=== PATIENT | female | born 1960 | race Caucasian/White ===

== ENCOUNTER 2017-08-26 16:04 | Emergency (ER) | payer SELFPAY ==
[2017-08-26] MEDS ORDERED: METF-410 PO (16:37)
[2017-08-26] MEDS ORDERED: SIMV5TAB60 PO (16:37)
--- NOTE | 2017-08-26 17:26 | RADIOLOGY IMAGING REPORT ---
[place] [facility] [place] NAME[place] Chica Zarate : 1960 MR: [id number] V: [id number] EXAM DATE: ORDERING PHYSICIAN: ELAINA MOLINA TECHNOLOGIST: Location: [facility] [place] Patient: Chica Zarate : 1960 Visit/Account:[id number] Date of Sevice: 08/26/2017 Exam type: WRIST LEFT 2 VIEW History: Fell yesterday Comparison: None. Findings: Two views of the left wrist were submitted. There is no gross evidence of acute fracture-dislocation involving the left wrist. Incidentally noted are calcifications in the triangle fibrocartilage. IMPRESSION: 1. No evidence of acute fracture-dislocation involving the left wrist Report Dictated By: Ava Galvan MD at 08/26/2017 5:20 PM Report E-Signed By: Ava Galvan MD at 08/26/2017 5:21 PM WSN:[email or web address]
--- NOTE | 2017-08-26 17:27 | RADIOLOGY IMAGING REPORT ---
FACILITY: PATIENT NAME: Chica Zarate : 1960 MR: [id number] V: [id number] EXAM DATE: ORDERING PHYSICIAN: ELAINA MOLINA TECHNOLOGIST: Location: [facility] - [place] Patient: Chica Zarate : 1960 Visit/Account:[id number] Date of Sevice: 08/26/2017 Exam type: KNEE 3 VIEW LEFT History: fall Comparison: February 01, 2016. Findings: Three views of the left knee were submitted for interpretation. There is mild degenerative change in volving the medial and lateral compartments. No evidence of acute fracture or dislocation. No signi ficant joint effusion identified IMPRESSION: 1. Mild degenerative changes of the left knee as described although no evidence of acute fracture or dislocation seen Report Dictated By: Ava Galvan MD at 08/26/2017 5:21 PM Report E-Signed By: Ava Galvan MD at 08/26/2017 5:23 PM WSN:[email or web address]
[2017-08-26 17:30] VITALS: BP 133/88
--- NOTE | 2017-08-26 17:30 | RADIOLOGY IMAGING REPORT ---
FACILITY: [facility] - [place] PATIENT NAME: Chica Zarate : 1960 MR: [id number] V: [id number] EXAM DATE: ORDERING PHYSICIAN: ELAINA MOLINA TECHNOLOGIST: Location: [facility] - [place] Patient: Chica Zarate : 1960 Visit/Account:[id number] Date of Sevice: 08/26/2017 Exam type: FOOT 2 VIEW LEFT History: fall Comparison: May 21, 2017. And April 07, 2016 Findings: Again noted are postsurgical changes from open reduction internal fixation of the left first metatars al. There is an acute appearing fracture through the midshaft of the proximal phalanx of the left gr eat toe with overlapping of the fracture fragments. Moderate degenerative changes at the subtalar crescencio int and talotibial joint are present IMPRESSION: 1. Acute appearing fracture through the midshaft of the proximal phalanx of the left great toe with overlapping of the fracture fragments Postsurgical changes of the left first metatarsal Degenerative changes elsewhere as described Report Dictated By: Ava Galvan MD at 08/26/2017 5:23 PM Report E-Signed By: Ava Galvan MD at 08/26/2017 5:26 PM WSN:[email or web address]
--- NOTE | 2017-08-26 17:30 | ER Report ---
History and Physical Time Seen By MD: 16:30 Hx. of Stated Complaint: [place] [facility]. Denies hitting head neck or back. Pt twisted left great toe. Great toe is very bruised. HPI/ROS chief concern: left great toe injury HPI: 57 y/o female presenting with concern for left great toe injury following a fall at the rec center yesterday. States she did not hit her head or lose consciousness. Reports slipping and falling onto her buttocks. Unaware of bumping her foot, but states when she looked down, her left great toe was dislocated and twisted over the second toe. Reports she also "bumped" her left knee and her left wrist. Review of Systems: Respiratory: Denies shortness of breath. CV: Denies chest pain MSK: Reports difficulty holding bowl of soup with left wrist/hand. Reports minor scrapes to left knee, denies bruising or swelling. Reports significant swelling and bruising to left foot, great and second toe, with partial weight bearing possible. Neuro: Denies hitting head, loss of consciousness. Denies headache. Allergies: Coded Allergies: amoxicillin (Verified Allergy, Unknown, 08/26/17) Home Meds Reported Medications Metformin Hcl (METFORMIN HCL) 500 Mg Tablet, 1 TAB PO BID, TAB 08/26/17 Simvastatin (SIMVASTATIN) 5 Mg Tablet, 5 MG PO HS, TAB 08/26/17 Past Medical/Surgical History Current medical conditions: diabetes, hypercholesterolemia. History of left lower extremity surgery with hardware in left foot. Reviewed Nurses Notes: Yes Hx Smoking: Yes Smoking Status: Former Smoker Constitutional Vital Sign - Last 24 Hours 08/26/17 08/26/17 08/26/17 08/26/17 16:09 16:12 16:19 16:30 Temp 98.1 Pulse 105 101 Resp 20 B/P (MAP) 156/95 (115) 156/95 134/102 (113) Pulse Ox 95 92 O2 Delivery Room Air 08/26/17 08/26/17 08/26/17 08/26/17 16:34 16:49 17:00 17:04 Pulse 103 97 B/P (MAP) 127/75 (92) Pulse Ox 93 92 95 08/26/17 08/26/17 08/26/17 08/26/17 17:19 17:30 17:34 17:49 Pulse 96 97 99 B/P (MAP) 133/88 (103) Pulse Ox 91 94 94 08/26/17 17:52 Pulse Ox 91 Physical Exam Physical Exam: General: Alert, oriented x3. Respiratory: clear to auscultation bilaterally. CV: regular rate and rhythm. GI: bowel sounds normoactive all quadrants. No tenderness to palpation. MSK: Left wrist: Inflammation, no erythema, ecchymosis to ulnar aspect. Slight tenderness to palpation. Full ROM, 5/5 strength. Left knee: minor abrasions posterior to patellar area. No ecchymosis, slight tenderness to palpation. Full ROM, 5/5 strength. Left foot: Inflammation, erythema, ecchymosis to great toe, second toe, extending to medial mid-navicular area. Full ROM, 2/5 strength on dorsiflexion and plantar flexion. Full ROM and 5/5 strength right foot. Neuro: medal, radial, ulnar nerve innervation intact. Foot: decreased sensation to touch plantar aspect great toe and second toe, extending to midfoot. After obtaining thorough HPI, ROS, and physical exam, the following differentials were considered but not limited to: toe fracture, knee fracture/ sprain, wrist fracture/sprain, fracture involving left foot hardware. Medical Decision Making EKG/Imaging Imaging Exam type: FOOT 2 VIEW LEFT History: fall Comparison: May 21, 2017. And April 07, 2016 Findings: Again noted are postsurgical changes from open reduction internal fixation of the left first metatarsal. There is an acute appearing fracture through the midshaft of the proximal phalanx of the left great toe with overlapping of the fracture fragments. Moderate degenerative changes at the subtalar joint and talotibial joint are present IMPRESSION: 1. Acute appearing fracture through the midshaft of the proximal phalanx of the left great toe with overlapping of the fracture fragments Postsurgical changes of the left first metatarsal Degenerative changes elsewhere as described Report Dictated By: Ava Galvan MD at 08/26/2017 5:23 PM Report E-Signed By: Ava Galvan MD at 08/26/2017 5:26 PM Exam type: KNEE 3 VIEW LEFT History: fall Comparison: February 01, 2016. Findings: Three views of the left knee were submitted for interpretation. There is mild degenerative change involving the medial and lateral compartments. No evidence of acute fracture or dislocation. No significant joint effusion identified IMPRESSION: 1. Mild degenerative changes of the left knee as described although no evidence of acute fracture or dislocation seen Report Dictated By: Ava Galvan MD at 08/26/2017 5:21 PM Report E-Signed By: Ava Galvan MD at 08/26/2017 5:23 PM Exam type: WRIST LEFT 2 VIEW History: Fell yesterday Comparison: None. Findings: Two views of the left wrist were submitted. There is no gross evidence of acute fracture-dislocation involving the left wrist. Incidentally noted are calcifications in the triangle fibrocartilage. IMPRESSION: 1. No evidence of acute fracture-dislocation involving the left wrist Report Dictated By: Ava Galvan MD at 08/26/2017 5:20 PM Report E-Signed By: Ava Galvan MD at 08/26/2017 5:21 PM ED Course/Re-evaluation ED Course Patient was admitted to an exam room, history and physical were obtained. Differential diagnoses were considered. On examination patient had significant swelling and bruising to the left foot. Patient had some bruising to the left knee. No bruising to the left wrist, she was tender over the ulnar styloid. X- rays done of the left foot, left knee and left wrist. Left knee and wrist were negative. However the left foot shows a fracture through the proximal phalange of the great toe. I discussed findings with the patient. Patient did have her toes annabelle taped. She is to follow-up with Dr. Mondragon at [facility]. She is to limit activity by pain. She may go ahead and wear a postop shoe , which she states she has home, to help limit the flexion on her foot. We discussed pain medication, which the patient refused. We will go ahead and discharge patient home at this time. Patient verbalized understanding and agreement with plan. Decision to Disposition Date: Aug 26, 2017 Decision to Disposition Time: 17:49 Depart Departure Latest Vital Signs Vital Signs Date Time Temp Pulse Resp B/P (MAP) Pulse Ox O2 Delivery O2 Flow Rate FiO2 08/26/17 17:52 91 08/26/17 17:49 99 08/26/17 17:30 133/88 (103) 08/26/17 16:12 98.1 20 Room Air Impression: Primary Impression: Fracture of great toe Condition: Improved Disposition: HOME OR SELF-CARE Referrals: TOM MONDRAGON MD Patient Instructions: Toe Fracture (ED) Additional Instructions: Limit activity by pain. Get plenty of rest. Take Tylenol or Ibuprofen as needed for pain. Follow up with Dr. Mondragon in the next week. Call to make an appointment. Return to the ER if condition worsens. Problem Qualifiers Primary Impression: Fracture of great toe Encounter type: initial encounter Fracture type: closed Phalanx: proximal Fracture alignment: displaced Laterality: left Qualified Codes: S92.412A - Displaced fracture of proximal phalanx of left great toe, initial encounter for closed fracture ELAINA MOLINA Aug 26, 2017 17:30
== END 2017-08-26 17:57 | disposition home or self-care (01) ==
LOC: ER 16:11
DX: S92.412A Displaced fracture of proximal phalanx of left great toe, initial encounter for closed fracture (principal); S80.02XA Contusion of left knee, initial encounter; W01.0XXA Fall on same level from slipping, tripping and stumbling without subsequent striking against object, initial encounter
CPT/HCPCS: 99283

== ENCOUNTER 2017-11-27 02:10 | Emergency (ER) | payer SELFPAY ==
[~2017-11-27 02:10] MED LIST: METF-411 PO; SIMV5TAB60 PO
[2017-11-27] MEDS ORDERED: LISI5TAB25 PO (02:19)
[2017-11-27] MEDS ORDERED: ASPI-870 (02:19)
[2017-11-27] MEDS ORDERED: GABA-549 PO (02:19)
[2017-11-27] MEDS ORDERED: SIMV-49 PO (02:25)
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
[2017-11-27] MEDS ORDERED: ASPIRIN 81 MG CHEW PO ONE (02:35)
[2017-11-27] MEDS ORDERED: ALBUTEROL 2.5 MG/3 ML NEB NEB ONE (02:35)
[2017-11-27 02:55] LABS: PLATELET COUNT, AUTOMATED 236 K/uL (150-450)
[2017-11-27 03:30] VITALS: BP 139/80
--- NOTE | 2017-11-27 03:33 | RADIOLOGY IMAGING REPORT ---
FACILITY: [facility] - [place] PATIENT NAME: Chica Zarate : 1960 MR: [id number] V: [id number] EXAM DATE: ORDERING PHYSICIAN: LISA VERDIN TECHNOLOGIST: Location: [facility] Patient: Chica Zarate : 1960 Visit/Account:[id number] Date of Sevice: 11/27/2017 EXAMINATION: PA and Lateral Chest 11/27/2017 2:33 AM HISTORY: short of breath COMPARISON: None FINDINGS: Cardiomediastinal contours: Normal Lungs and pleura: Pulmonary markings are not increased allowing for the degree of penetration seconda ry to body habitus. No focal infiltrate or consolidation. Pleural spaces are clear. Bones/soft tissues: Mild degenerative spurring in the thoracic spine. IMPRESSION: No acute cardiopulmonary abnormality. Report Dictated By: David Cruz MD at 11/27/2017 3:26 AM Report E-Signed By: David Cruz MD at 11/27/2017 3:27 AM WSN:[email or web address]
--- NOTE | 2017-11-27 04:52 | EKG ---
FACILITY: [facility] [place] PATIENT NAME: CHELLY ROJAS : [id number] MR: [id number] V: [id number] EXAM DATE: ORDERING PHYSICIAN: LISA VERDIN TECHNOLOGIST: TAJ Test Reason : DYSPNEA Blood Pressure : / mmHG Vent. Rate : 090 BPM Atrial Rate : 089 BPM P-R Int : 142 ms QRS Dur : 084 ms QT Int : 384 ms P-R-T Axes : 013 028 035 degrees QTc Int : 469 ms Normal sinus rhythm Low voltage QRS No ST-T abnormalities When compared with ECG of 16-OCT-2016 11:02, Relatively unchanged Confirmed by ANA PAYNE ([id number]) on 11/27/2017 7:28:12 AM Referred By: Confirmed By:ANA PAYNE
== END 2017-11-27 03:51 | disposition home or self-care (01) ==
LOC: ER 02:41
DX: F41.0 Panic disorder [episodic paroxysmal anxiety] (principal); R06.02 Shortness of breath
CPT/HCPCS: 71046; 83880; 84484; 85025; 85379; 93005; 94640; 99284; J7613; 82040; 82247; 82310; 82374; 82435; 82565; 82947; 84075; 84132; 84155; 84295; 84450; 84460; 84520

== ENCOUNTER 2017-12-01 23:26 | Emergency (ER) | payer SELFPAY ==
[~2017-12-01 23:26] MED LIST changes: +ASPI-870; +GABA-549 PO; +LISI5TAB25 PO; +SIMV-49 PO
[2017-12-01] MEDS ORDERED: MORPHINE 4 MG/ML SDV IVP ONE (23:40)
[2017-12-01] MEDS ORDERED: ONDANSETRON 4 MG/2 ML VIAL IVP ONE (23:40)
[2017-12-01] MEDS ORDERED: KETOROLAC 30 MG/ML VIAL IVP ONE (23:40)
[2017-12-02] LABS: PLATELET COUNT, AUTOMATED 268 K/uL (150-450)
[2017-12-02] MEDS ORDERED: LEVI SUBQ (00:10)
[2017-12-02] MEDS ORDERED: NOVOLOG SUBQ (00:10)
[2017-12-02] MEDS ORDERED: LISI-362 PO (00:10)
[2017-12-02] MEDS ORDERED: GABA-549 PO (00:10)
[2017-12-02] MEDS ORDERED: NS(*) 0.9% 1000 ML BAG 1,000 ML IV ONE (00:35)
[2017-12-02] MEDS ORDERED: CIPROFLOXACIN 500 MG TAB PO ONE (01:15)
[2017-12-02] MEDS ORDERED: cefTRIAXone 1 GM VIAL IVP ONE (01:15)
[2017-12-02] MEDS ORDERED: CIPR-344 PO (01:19)
[2017-12-02] MEDS ORDERED: ONDA4TAB97 PO (01:19)
[2017-12-02] MEDS ORDERED: ACET/HYDROC 5/325MG TH ER ONLY 2 TAB/BOTTLE PO ONE (01:20)
--- NOTE | 2017-12-02 01:20 | ER Report ---
History and Physical Time Seen By MD: 23:31 Hx. of Stated Complaint: Severe left flank pain that radiates to the front. HPI/ROS CHIEF COMPLAINT: Left flank pain HISTORY OF PRESENT ILLNESS: 57-year-old female presents ambulatory to the ER with sudden onset 2-3 hours ago, left flank pain. Patient notes severe nausea, but she is unable to vomit. She notes no fever or chills. She notes no hematuria. She denies history of kidney stones. Patient was seen here in the ER a few days ago for? Anxiety. Patient appears very uncomfortable. She notes no alleviating or exacerbating factors for her pain. REVIEW OF SYSTEMS: Respiratory: No cough, no dyspnea. Cardiovascular: No chest pain, no palpitations. Gastrointestinal: As above Musculoskeletal: As above Allergies: Coded Allergies: amoxicillin (Verified Allergy, Unknown, 11/27/17) Home Meds Active Scripts Ondansetron Hcl (ZOFRAN) 4 Mg Tablet, 4 MG PO Q6H for Nausea, #10 Prov:MAHAD CISNEROS DO 12/02/17 Ciprofloxacin Hcl (CIPRO) 500 Mg Tablet, 500 MG PO BID for infection, #14 Prov:MAHAD CISNEROS DO 12/02/17 Reported Medications Insulin Aspart (NOVOLOG) 100 Unit/Ml Soln, 2 UNIT SUBQ 12/02/17 Insulin Detemir (LEVEMIR) 100 Unit/Ml Injs, 80 UNIT SUBQ QHS 12/02/17 Lisinopril (LISINOPRIL) 10 Mg Tablet, 10 MG PO QDAY, TAB 12/02/17 Gabapentin (GABAPENTIN) 300 Mg Capsule, 300 MG PO BID, CAPSULE 12/02/17 Simvastatin (SIMVASTATIN) 20 Mg Tablet, 20 MG PO HS, TAB 11/27/17 Aspirin (Children's Aspirin) 81 Mg Tab.chew 11/27/17 Metformin Hcl (METFORMIN HCL) 500 Mg Tablet, 1 TAB PO BID, TAB 08/26/17 Discontinued Reported Medications Lisinopril (LISINOPRIL) 5 Mg Tablet, 5 MG PO QDAY, TAB 11/27/17 Gabapentin (GABAPENTIN) 300 Mg Capsule, 300 MG PO TID, CAPSULE 11/27/17 Simvastatin (SIMVASTATIN) 5 Mg Tablet, 5 MG PO HS, TAB 08/26/17 Past Medical/Surgical History Hypertension, Type II diabetes, insulin required, hypercholesterolemia Reviewed Nurses Notes: Yes Old Medical Records Reviewed: Yes Hx Smoking: Yes Smoking Status: Former Smoker Hx Substance Use Disorder: No Hx Alcohol Use: No Constitutional Vital Sign - Last 24 Hours 12/01/17 12/01/17 12/02/17 12/02/17 23:32 23:33 00:03 00:08 Temp 98.3 Pulse 82 77 Resp 16 B/P (MAP) 147/100 147/108 (121) 148/90 (109) Pulse Ox 99 98 O2 Delivery Room Air 12/02/17 12/02/17 12/02/17 12/02/17 00:30 00:38 00:53 01:00 Pulse 81 B/P (MAP) 117/82 (94) 114/63 (80) Pulse Ox 96 91 89 12/02/17 12/02/17 12/02/17 12/02/17 01:05 01:30 01:35 01:53 Pulse 84 84 B/P (MAP) 106/55 (72) 107/60 (76) Pulse Ox 87 90 12/02/17 01:55 Pulse 84 Pulse Ox 90 Physical Exam Vital signs stable, afebrile, pulse ox normal General Appearance: The patient is alert, has no immediate need for airway protection and no current signs of toxicity. Moderate distress, slightly pale appearing, restless and uncomfortable appearing Eyes: Pupils equal and round no injection. Respiratory: Chest is non tender, lungs are clear to auscultation. Cardiac: regular rate and rhythm Gastrointestinal: Abdomen is soft and non tender, no masses, bowel sounds normal. Bilateral CVA tenderness Musculoskeletal: Neck: Neck is supple and non tender. Extremities have full range of motion and are non tender. Skin: No rashes or lesions. DIFFERENTIAL DIAGNOSIS: After history and physical exam differential diagnosis was considered for flank pain including but not limited to musculoskeletal causes, kidney stone, pyelonephritis, shingles, and intra-abdominal causes such as diverticulitis and appendicitis. Additionally,abdominal pain including but not limited to appendicitis, cholecystitis, gastritis and urinary tract infection. Medical Decision Making Data Points Result Diagram: 12/01/17 2330 12/01/17 2330 Laboratory Hematology Test 12/01/17 23:30 12/02/17 00:58 Red Blood Count 5.42 M/uL (4.17-5.56) Mean Corpuscular Volume 89.0 fL (80.0-96.0) Mean Corpuscular Hemoglobin 29.9 pg (26.0-33.0) Mean Corpuscular Hemoglobin Concent 33.6 g/dL (32.0-36.0) Red Cell Distribution Width 14.5 % (11.5-14.5) Mean Platelet Volume 9.3 fL (7.2-11.1) Neutrophils (%) (Auto) 62.8 % (39.4-72.5) Lymphocytes (%) (Auto) 26.8 % (17.6-49.6) Monocytes (%) (Auto) 5.7 % (4.1-12.4) Eosinophils (%) (Auto) 3.5 % (0.4-6.7) Basophils (%) (Auto) 1.2 % (0.3-1.4) Nucleated RBC Relative Count (auto) 0.0 /100WBC Neutrophils # (Auto) 8.9 K/uL (2.0-7.4) Lymphocytes # (Auto) 3.8 K/uL (1.3-3.6) Monocytes # (Auto) 0.8 K/uL (0.3-1.0) Eosinophils # (Auto) 0.5 K/uL (0.0-0.5) Basophils # (Auto) 0.2 K/uL (0.0-0.1) Nucleated RBC Absolute Count (auto) 0.00 K/uL Sodium Level 137 mmol/L (137-145) Potassium Level 3.9 mmol/L (3.5-5.0) Chloride Level 99 mmol/L (98-107) Carbon Dioxide Level 24 mmol/L (22-31) Blood Urea Nitrogen 17 mg/dl (7-18) Creatinine 0.60 mg/dl (0.52-1.04) Glomerular Filtration Rate Calc > 60.0 Random Glucose 131 mg/dl (75-110) Calcium Level 10.0 mg/dl (8.4-10.2) Total Bilirubin 0.3 mg/dl (0.2-1.3) Aspartate Amino Transf (AST/SGOT) 20 U/L (0-35) Alanine Aminotransferase (ALT/SGPT) 19 U/L (0-56) Alkaline Phosphatase 78 U/L (0-126) Total Protein 8.0 g/dl (6.3-8.2) Albumin 4.4 g/dl (3.5-5.0) Amylase Level 61 U/L (0-110) Lipase 34 U/L (23-300) Urine Color Yellow Urine Clarity Cloudy Urine pH 5.0 pH (4.8-9.5) Urine Specific [place] 1.013 Urine Protein 30 mg/dL (NEGATIVE) Urine Glucose (UA) Negative mg/dL (NEGATIVE) Urine Ketones Negative mg/dL (NEGATIVE) Urine Blood Large (NEGATIVE) Urine Nitrite Positive (NEGATIVE) Urine Bilirubin Negative (NEGATIVE) Urine Urobilinogen Negative mg/dL (0.2-1.9) Urine Leukocyte Esterase Large (NEGATIVE) Urine RBC 163 /HPF (0-2/HPF) Urine WBC 470 /HPF (0-5/HPF) Urine WBC Clumps Mod /HPF Urine Squamous Epithelial Cells Many /LPF (</=FEW) Urine Transitional Epithelial Cells Few /LPF (NONE-FEW) Urine Bacteria Moderate /HPF (NONE-FEW) Urine Mucus Few /HPF (NONE-FEW) Chemistry Test 12/01/17 23:30 12/02/17 00:58 White Blood Count 14.2 k/uL (4.5-11.0) Red Blood Count 5.42 M/uL (4.17-5.56) Hemoglobin 16.2 g/dL (12.0-16.0) Hematocrit 48.2 % (34.0-47.0) Mean Corpuscular Volume 89.0 fL (80.0-96.0) Mean Corpuscular Hemoglobin 29.9 pg (26.0-33.0) Mean Corpuscular Hemoglobin Concent 33.6 g/dL (32.0-36.0) Red Cell Distribution Width 14.5 % (11.5-14.5) Platelet Count 268 K/uL (150-450) Mean Platelet Volume 9.3 fL (7.2-11.1) Neutrophils (%) (Auto) 62.8 % (39.4-72.5) Lymphocytes (%) (Auto) 26.8 % (17.6-49.6) Monocytes (%) (Auto) 5.7 % (4.1-12.4) Eosinophils (%) (Auto) 3.5 % (0.4-6.7) Basophils (%) (Auto) 1.2 % (0.3-1.4) Nucleated RBC Relative Count (auto) 0.0 /100WBC Neutrophils # (Auto) 8.9 K/uL (2.0-7.4) Lymphocytes # (Auto) 3.8 K/uL (1.3-3.6) Monocytes # (Auto) 0.8 K/uL (0.3-1.0) Eosinophils # (Auto) 0.5 K/uL (0.0-0.5) Basophils # (Auto) 0.2 K/uL (0.0-0.1) Nucleated RBC Absolute Count (auto) 0.00 K/uL Glomerular Filtration Rate Calc > 60.0 Calcium Level 10.0 mg/dl (8.4-10.2) Total Bilirubin 0.3 mg/dl (0.2-1.3) Aspartate Amino Transf (AST/SGOT) 20 U/L (0-35) Alanine Aminotransferase (ALT/SGPT) 19 U/L (0-56) Alkaline Phosphatase 78 U/L (0-126) Total Protein 8.0 g/dl (6.3-8.2) Albumin 4.4 g/dl (3.5-5.0) Amylase Level 61 U/L (0-110) Lipase 34 U/L (23-300) Urine Color Yellow Urine Clarity Cloudy Urine pH 5.0 pH (4.8-9.5) Urine Specific [place] 1.013 Urine Protein 30 mg/dL (NEGATIVE) Urine Glucose (UA) Negative mg/dL (NEGATIVE) Urine Ketones Negative mg/dL (NEGATIVE) Urine Blood Large (NEGATIVE) Urine Nitrite Positive (NEGATIVE) Urine Bilirubin Negative (NEGATIVE) Urine Urobilinogen Negative mg/dL (0.2-1.9) Urine Leukocyte Esterase Large (NEGATIVE) Urine RBC 163 /HPF (0-2/HPF) Urine WBC 470 /HPF (0-5/HPF) Urine WBC Clumps Mod /HPF Urine Squamous Epithelial Cells Many /LPF (</=FEW) Urine Transitional Epithelial Cells Few /LPF (NONE-FEW) Urine Bacteria Moderate /HPF (NONE-FEW) Urine Mucus Few /HPF (NONE-FEW) Urinalysis Test 12/02/17 00:58 Urine Color Yellow Urine Clarity Cloudy Urine pH 5.0 pH (4.8-9.5) Urine Specific [place] 1.013 Urine Protein 30 mg/dL (NEGATIVE) Urine Glucose (UA) Negative mg/dL (NEGATIVE) Urine Ketones Negative mg/dL (NEGATIVE) Urine Blood Large (NEGATIVE) Urine Nitrite Positive (NEGATIVE) Urine Bilirubin Negative (NEGATIVE) Urine Urobilinogen Negative mg/dL (0.2-1.9) Urine Leukocyte Esterase Large (NEGATIVE) Urine RBC 163 /HPF (0-2/HPF) Urine WBC 470 /HPF (0-5/HPF) Urine WBC Clumps Mod /HPF Urine Squamous Epithelial Cells Many /LPF (</=FEW) Urine Transitional Epithelial Cells Few /LPF (NONE-FEW) Urine Bacteria Moderate /HPF (NONE-FEW) Urine Mucus Few /HPF (NONE-FEW) ED Course/Re-evaluation Clinical Indication for ER IV: Hydration, IV Access ED Course Patient was admitted to an examination room. H&P was done. The differential diagnoses was considered. Patient was medicated with morphine, Toradol and Zofran. Diagnostic studies show an elevated white blood cell count of 14,000. Her urinalysis returns with gross infection consistent with pyelonephritis. Urinary cultures ordered. She is treated with Rocephin 1 g IV and Cipro 500 mg by mouth. Should be discharged home on Cipro and Zofran. She is advised ibuprofen and Tylenol for pain relief. She is discharged home with Lortab prepack for temporary pain relief. Decision to Disposition Date: Dec 02, 2017 Decision to Disposition Time: 01:17 Depart Departure Latest Vital Signs Vital Signs Date Time Temp Pulse Resp B/P (MAP) Pulse Ox O2 Delivery O2 Flow Rate FiO2 12/02/17 01:55 84 90 12/02/17 01:53 107/60 (76) 12/01/17 23:32 98.3 16 Room Air Impression: Primary Impression: Pyelonephritis Condition: Improved Disposition: HOME OR SELF-CARE New Scripts Ondansetron Hcl (ZOFRAN) 4 Mg Tablet 4 MG PO Q6H for Nausea, #10 Prov: MAHAD CISNEROS DO 12/02/17 Ciprofloxacin Hcl (CIPRO) 500 Mg Tablet 500 MG PO BID for infection, #14 Prov: MAHAD CISNEROS DO 12/02/17 Patient Instructions: Kidney Infection (ED) Additional Instructions: Drink plenty of fluids Follow-up with primary care if unimproved in 2-3 days MAHAD CISNEROS DO Dec 02, 2017 01:20
[2017-12-02 01:53] VITALS: BP 107/60
== END 2017-12-02 01:58 | disposition home or self-care (01) ==
LOC: ER 23:43
DX: N12 Tubulo-interstitial nephritis, not specified as acute or chronic (principal); B96.1 Klebsiella pneumoniae [K. pneumoniae] as the cause of diseases classified elsewhere; E11.9 Type 2 diabetes mellitus without complications; Z79.4 Long term (current) use of insulin
CPT/HCPCS: 81001; 82150; 83690; 85025; 87077; 87088; 87186; 96361; 96374; 96375; 99284; J0696; J1885; J2270; J2405; J7030; 82040; 82247; 82310; 82374; 82435; 82565; 82947; 84075; 84132; 84155; 84295; 84450; 84460; 84520

== ENCOUNTER → 2018-02-11 | Outpatient (REF) ==
[~2018-02-11] MED LIST changes: +CIPR-344 PO; +LEVI SUBQ; +LISI-362 PO; +NOVOLOG SUBQ; +ONDA4TAB97 PO
== END ==
LOC: LAB 12:46
PROVIDERS: ATTEND Nurse Practitioner
DX: L03.119 Cellulitis of unspecified part of limb (principal)
CPT/HCPCS: 36415; 82310; 82374; 82435; 82565; 82947; 84132; 84295; 84520; 85027; 85651; 86140; 87040

== ENCOUNTER → 2018-06-19 | Outpatient (REF) ==
[~2018-06-19] MED LIST changes: -METF-411 PO; +METF-450 PO; -SIMV5TAB60 PO; +SIMV5TAB69 PO
== END ==
LOC: RESP 20:23 → EDSTATUS 21:00
PROVIDERS: ATTEND Family Medicine
DX: G47.33 Obstructive sleep apnea (adult) (pediatric) (principal); G47.61 Periodic limb movement disorder

== ENCOUNTER → 2018-10-05 | Outpatient (REF) ==
--- NOTE | 2018-10-05 16:11 | RADIOLOGY IMAGING REPORT ---
[place] [facility] [place] Chica Zarate : 1960 MR: [id number] V: [id number] EXAM DATE: ORDERING PHYSICIAN: JORDAN TORO TECHNOLOGIST: Location: [facility] - [place] Patient: Chica Zarate : 1960 Visit/Account:[id number] Date of Sevice: 10/05/2018 Exam type: US VENOUS LOWER EXT RT History: Right calf swelling Comparison: None. Findings: The right lower extremity veins are imaged including the right common femoral vein, greater saphenous vein, superficial femoral vein, popliteal vein, posterior tibial vein, peroneal vein and anterior ti bial veins. The veins were compressible and demonstrated augmentation. IMPRESSION: 1. No sonographic evidence DVT involving the right lower extremity veins Report Dictated By: Ava Galvan MD at 10/05/2018 4:05 PM Report E-Signed By: Ava Galvan MD at 10/05/2018 4:06 PM WSN:[id number]
== END ==
LOC: US 14:35
PROVIDERS: ATTEND Nurse Practitioner
DX: R22.42 Localized swelling, mass and lump, left lower limb (principal)

== ENCOUNTER → 2018-12-21 | Outpatient (CLI) | payer OTHER ==
--- NOTE | 2018-12-22 09:30 | RADIOLOGY IMAGING REPORT ---
[place] [facility] [place] NAME: CHELLY ROJAS : [id number] MR: [id number] V: [id number] EXAM DATE: ORDERING PHYSICIAN: JORDAN TORO TECHNOLOGIST: Brigette Reyes PROCEDURE: BILATERAL DIGITAL SCREENING MAMMOGRAM WITH CAD ASSISTED INTERPRETATION & 3D TOMOSYNTHESIS. REASON FOR STUDY: Screening. FAMILY HISTORY OF BREAST CANCER: None. BREAST PROCEDURES/TREATMENTS: None. VIEWS OBTAINED: Bilateral 2D & 3D full field CC & MLO projections. BREAST DENSITY: There are scattered areas of fibroglandular density throughout the breasts. MAMMOGRAM FINDINGS: There is no demonstration of malignant appearing mass, malignant appearing calcification or other secondary sign of malignancy in either breast. IMPRESSION: BIRADS 1: Negative. DIAGNOSTIC CATEGORY 1--NEGATIVE. RECOMMENDATIONS: ROUTINE MAMMOGRAM AND CLINICAL EVALUATION. Dictated by: Ava Galvan M.D. on 12/21/2018 at 16:09 Transcribed by: ANTON on 12/22/2018 at 8:35 Approved by: Ava Galvan M.D. on 12/22/2018 at 9:27 [facility]
== END ==
LOC: MAMO 09-13 01:53 → EDSTATUS 16:46
PROVIDERS: ATTEND Nurse Practitioner
DX: Z12.31 Encounter for screening mammogram for malignant neoplasm of breast (principal)
CPT/HCPCS: 77063; 77067